=== PATIENT | male | born 1970 | race Caucasian/White ===

== ENCOUNTER 2018-06-02 18:34 | Emergency (ER) | payer OTHER ==
[~2018-06-02] VITALS: Ht 172.7 cm; Wt 72.6 kg
[2018-06-02] MEDS ORDERED: CLONAZEPAM2 MG (19:02)
== END 2018-06-02 20:02 | disposition home or self-care (01) ==
LOC: ER 18:34
DX: F06.4 Anxiety disorder due to known physiological condition (principal)

== ENCOUNTER 2022-09-14 07:48 | Emergency (ER) | payer OTHER ==
[~2022-09-14] VITALS: Ht 172.7 cm; Wt 74.8 kg
[~2022-09-14 07:48] MED LIST: CLONAZEPAM2 MG
== END 2022-09-14 11:42 | disposition home or self-care (01) ==
LOC: ER 07:48
DX: S01.81XA Laceration without foreign body of other part of head, initial encounter (principal); W01.0XXA Fall on same level from slipping, tripping and stumbling without subsequent striking against object, initial encounter; Y93.9 Activity, unspecified; Y92.002 Bathroom of unspecified non-institutional (private) residence as the place of occurrence of the external cause; Y99.9 Unspecified external cause status; Z88.0 Allergy status to penicillin